=== PATIENT | female | born 2000 | race Caucasian/White ===

== ENCOUNTER 2021-09-11 00:04 | Emergency (ER) | payer OTHER ==
[~2021-09-11] VITALS: Ht 167.6 cm; Wt 95.6 kg
--- NOTE | 2021-09-11 00:38 | PHYS DOC ---
Adult General Chief Complaint Chief Complaint: ABDOMINAL PAIN HPI HPI Patient is a 21-year-old female with a past medical history of colitis and pancreatitis who presents to the emergency department with a chief complaint of epigastric pain, 6 out of 10, sharp in nature after having an alcoholic drink of tequila just before coming into the emergency department. States she had 2 episodes of nonbloody nonbilious emesis. Denies any recent traumas or travels, illnesses, fevers, chest pain, shortness of breath, diarrhea, dysuria, hematuria, blood in the stool. Denies any vaginal bleeding, discharge, pain or history of STIs. Review of Systems Review of Systems Review of systems otherwise unremarkable except noted in HPI Physical Exam Physical Exam Constitutional: Well developed, well nourished, no acute distress, non-toxic appearance. [] HENT: Normocephalic, atraumatic, bilateral external ears normal, oropharynx moist, no oral exudates, nose normal. [] Eyes: conjunctiva normal, no discharge. [] Neck: Normal range of motion, no tenderness, supple, no stridor. [] Cardiovascular:Heart rate regular rhythm, no murmur [] Lungs & Thorax: Bilateral breath sounds clear to auscultation [] Abdomen: soft, epigastric tenderness with no rebound or guarding,, no masses, no pulsatile masses. [] Skin: Warm, dry, no erythema, no rash. [] Back: No tenderness, no CVA tenderness. [] Extremities: No tenderness, no cyanosis, no clubbing, ROM intact, no edema. [] Neurologic: Alert and oriented X 3, normal motor function, normal sensory function, no focal deficits noted. [] Psychologic: Affect normal, judgement normal, mood normal. [] EKG EKG [] Radiology/Procedures Radiology/Procedures [] Heart Score C/O Chest Pain: No Risk Factors: Risk Factors: DM, Current or recent (<one month) smoker, HTN, HLP, family history of CAD, obesity. Risk Scores: Risk Factors: DM, Current or recent (<one month) smoker, HTN, HLP, family history of CAD, obesity. Course & Med Decision Making Course & Med Decision Making Patient is a 21-year-old female who presents with a chief complaint of epigastric pain, nausea and vomiting after drinking some tequila Vital signs nonconcerning. Physical exam noted above. Patient placed on the monitor with IV access established. Given pain and nausea medicine. Laboratory analysis not concerning. CT with no acute findings. On reassessment patient feeling better and felt safe to discharge home. Discussed findings with patient. Discussed symptomatic control at home. Advised to follow-up Monday with primary care physician. Gave return precautions to the ED. Patient grateful, verbalized understanding and agreed with plan of discharge. Dragon Disclaimer Dragon Disclaimer This electronic medical record was generated, in whole or in part, using a voice recognition dictation system. Departure Departure: Impression: Primary Impression: Abdominal pain Disposition: HOME / SELF CARE / HOMELESS Condition: STABLE Referrals: PCP,UNKNOWN (PCP) DENNIS MELENDREZ Patient Instructions: Abdominal Pain Additional Instructions: Thank you for coming into the emergency department tonight and allowing us to take care of you. Please read the attached information carefully to go over things we discussed. He can use Tylenol, and ibuprofen as well as Benadryl as needed. Please follow-up with your primary care physician on Monday to update on your ED visit and set up a follow-up as soon as you can. Please come back to the emergency department with new or concerning symptoms as discussed. MALLORY LUNA MD Sep 11, 2021 00:38
[2021-09-11 00:42] VITALS: BP 113/70
[2021-09-11] MEDS ORDERED: ONDANSETRON PF 4 MG/2 ML VIAL. IVP ONE (00:45)
[2021-09-11 00:57] LABS: BASO # 0.1 x10^3/uL (0.0-0.2); BASO % 1 % (0-3); EOS # 0.5 x10^3/uL (0.0-0.7); EOS % 6 % (0-3); HEMATOCRIT 41.4 % (36.0-47.0); HEMOGLOBIN 13.8 g/dL (12.0-15.5); LYMPH % 37 % (24-48); MEAN CORPUSCULAR HEMOGLOBIN 30 pg (25-35); MEAN CORPUSCULAR HGB CONC 33 g/dL (31-37); MEAN CORPUSCULAR VOLUME 88 fL (79-100); MONO # 0.8 x10^3/uL (0.0-1.1); MONO % 10 % (0-9); NEUT # 3.8 x10^3uL (1.8-7.7); NEUT % 46 % (31-73); PLATELET COUNT 361 x10^3/uL (140-400); RED BLOOD COUNT 4.69 x10^6/uL (3.50-5.40); WHITE BLOOD COUNT 8.2 x10^3/uL (4.0-11.0)
[2021-09-11] MEDS ORDERED: CONTRAST GIVEN. MC PRN (01:00)
[2021-09-11] MEDS ORDERED: IOHEXOL 300 MG/ML 75 ML VIAL. IV ONE (01:00)
[2021-09-11 01:03] LABS: CALCIUM 8.8 mg/dL (8.5-10.1); CREATININE 0.7 mg/dL (0.6-1.0); GFR 104.6; POTASSIUM 3.9 mmol/L (3.5-5.1)
[2021-09-11 01:03] LABS: BACTERIA,URINE 0 /HPF (0-FEW); BILIRUBIN,URINE NEG (NEG); CLARITY,URINE CLEAR; COLOR,URINE YELLOW; GLUCOSE,URINE NEG (NEG); NITRITE,URINE NEG (NEG); RBC,URINE 0 /HPF (0-2); SQUAMOUS EPITHELIAL CELL,UR FEW /LPF; UROBILINOGEN,URINE 0.2 mg/dL (0.2 mg/dL); WBC,URINE RARE /HPF (0-4)
[2021-09-11 01:09] LABS: ALBUMIN 3.8 g/dL (3.4-5.0); TOTAL BILIRUBIN 0.3 mg/dL (0.2-1.0); TOTAL PROTEIN 7.7 g/dL (6.4-8.2)
--- NOTE | 2021-09-11 01:52 | RAD ---
EXAM: CT Abdomen and Pelvis with IV contrast CLINICAL HISTORY: Epigastric pain. HX PANCREATITIS, COMPARISON: none TECHNIQUE: Helical CT of the abdomen and pelvis was performed following the administration of intrave nous contrast. Axial, coronal and sagittal reformatted images were generated. PQRS compliance statement - One or more of the following individualized dose reduction techniques wer e utilized for this study: 1. Automated exposure control 2. Adjustment of the mA and/or kV according to patient size 3. Use of iterative reconstruction technique FINDINGS: Lower Chest: Linear opacity lingula likely scarring/atelectasis. Abdomen and Pelvis: Liver is enlarged measuring 22.3 cm in craniocaudal dimension. The spleen, adrenal glands and pancrea s are unremarkable. Gallbladder is contracted. No biliary ductal dilatation. Symmetric nephrograms. Nonobstructing left lower pole renal calculus. No hydronephrosis. No hydrouret er. Bladder is decompressed. Anastomosis in the rectum and distal small bowel. No abdominal or pelvic lymphadenopathy. No abdominal or pelvic ascites. Aorta is normal in caliber. Bones: No aggressive osseous lesion is seen. IMPRESSION: 1. Hepatomegaly. 2. Gallbladder is contracted but otherwise unremarkable. 3. Nonobstructing left lower pole renal calculus. 4. No bowel obstruction. Electronically signed by: Obinna Dixon MD (09/11/2021 1:50 AM) BELIA
== END 2021-09-11 02:07 | disposition home or self-care (01) ==
LOC: ER 00:04
DX: R10.13 Epigastric pain (principal); R11.2 Nausea with vomiting, unspecified
CPT/HCPCS: 36415; 74177; 80053; 81001; 81025; 83690; 85025; 96374; 96375; 99285; J2405; J3010; Q9967

== ENCOUNTER 2021-10-25 09:07 | Emergency (ER) | payer OTHER ==
[~2021-10-25] VITALS: Ht 167.6 cm; Wt 93.0 kg
[2021-10-25 09:10] VITALS: BP 113/68
[2021-10-25] MEDS ORDERED: IOHEXOL 300 MG/ML 75 ML VIAL. IV ONE (09:45)
[2021-10-25 09:55] LABS: BASO % 1 % (0-3); EOS # 0.3 x10^3/uL (0.0-0.7); EOS % 6 % (0-3); HEMATOCRIT 41.8 % (36.0-47.0); HEMOGLOBIN 14.1 g/dL (12.0-15.5); LYMPH # 1.7 x10^3/uL (1.0-4.8); LYMPH % 32 % (24-48); MEAN CORPUSCULAR HEMOGLOBIN 29 pg (25-35); MEAN CORPUSCULAR HGB CONC 34 g/dL (31-37); MEAN CORPUSCULAR VOLUME 87 fL (79-100); MONO # 0.5 x10^3/uL (0.0-1.1); MONO % 9 % (0-9); NEUT # 2.8 x10^3uL (1.8-7.7); NEUT % 52 % (31-73); PLATELET COUNT 332 x10^3/uL (140-400); RED BLOOD COUNT 4.78 x10^6/uL (3.50-5.40); RED CELL DISTRIBUTION WIDTH 13.9 % (11.5-14.5); WHITE BLOOD COUNT 5.3 x10^3/uL (4.0-11.0)
--- NOTE | 2021-10-25 09:56 | PHYS DOC ---
Past History Additional Past Medical Histor: COLITIS Past Surgical History: Colectomy, Alcohol Use: Occasionally General Adult EDM: Chief Complaint: RECTAL BLEED HPI: HPI: Patient is a 21 year old female who presents with bright red blood per rectum. Patient states that yesterday, she had to strain in order to pass a bowel movement and noticed bright red blood on her stool. She states that at the heaviest bleeding, there was visible blood in the toilet bowl. She states that the bleeding tapered off and stopped on its own. Patient has extensive history of ulcerative colitis with a J-pouch and multiple colostomies that were reversed. Patient is currently 4 months . She states that she was in active labor for over 2 hours, and the delivery ended up due to umbilical cord compression. Patient denies abdominal pain, emesis, diarrhea. Review of Systems: Review of Systems: Constitutional: Denies fever, chills or generalized weakness Eyes: Denies change in visual acuity, visual field deficits or discharge HENT: Denies ear pain, nasal congestion or sore throat Respiratory: Denies cough or shortness of breath Cardiovascular: Denies chest pain, palpitations or edema GI: See HPI : Denies dysuria or hematuria Musculoskeletal: Denies back pain or joint pain Integument: Denies rash or other skin lesion Neurologic: Denies headache, focal weakness or sensory changes Current Medications: Current Meds: Current Medications Medications (Trade) Dose Ordered Sig/Sonido Start Time Stop Time Status Last Admin Dose Admin Iohexol (Omnipaque 300 Mg/ml) 75 ml 1X ONCE 10/25/21 09:45 10/25/21 09:46 DC Allergies: Allergies: Allergies Coded Allergies Type Severity Reaction Last Updated Verified ferrous sulfate Allergy Mild 09/11/21 Yes oxycodone Allergy Unknown 09/11/21 Yes Physical Exam: PE: Constitutional: Well developed, well nourished, no acute distress, non-toxic appearance. HENT: Normocephalic, atraumatic, bilateral external ears normal, nose normal. Eyes: EOMI, conjunctiva normal, no discharge. Neck: Normal range of motion, no stridor. Abdomen: Bowel sounds normal, soft, no tenderness, no masses, no pulsatile masses. Rectal: External hemorrhoid 6:00 without leona blood, rectal sphincter tone intact, no masses appreciated in rectum. Skin: Warm, dry, no erythema, no rash. Extremities: No tenderness, no cyanosis, no clubbing, ROM intact, no edema. Neurologic: Alert and oriented x4, steady and symmetrical upright gait, no focal deficits noted. Current Patient Data: Labs: Laboratory Tests Test 10/25/21 09:30 10/25/21 09:38 10/25/21 09:48 White Blood Count 5.3 x10^3/uL (4.0-11.0) Red Blood Count 4.78 x10^6/uL (3.50-5.40) Hemoglobin 14.1 g/dL (12.0-15.5) Hematocrit 41.8 % (36.0-47.0) Mean Corpuscular Volume 87 fL (79-100) Mean Corpuscular Hemoglobin 29 pg (25-35) Mean Corpuscular Hemoglobin Concent 34 g/dL (31-37) Red Cell Distribution Width 13.9 % (11.5-14.5) Platelet Count 332 x10^3/uL (140-400) Neutrophils (%) (Auto) 52 % (31-73) Lymphocytes (%) (Auto) 32 % (24-48) Monocytes (%) (Auto) 9 % (0-9) Eosinophils (%) (Auto) 6 % (0-3) Basophils (%) (Auto) 1 % (0-3) Neutrophils # (Auto) 2.8 x10^3uL (1.8-7.7) Lymphocytes # (Auto) 1.7 x10^3/uL (1.0-4.8) Monocytes # (Auto) 0.5 x10^3/uL (0.0-1.1) Eosinophils # (Auto) 0.3 x10^3/uL (0.0-0.7) Basophils # (Auto) 0.0 x10^3/uL (0.0-0.2) Sodium Level 139 mmol/L (136-145) Potassium Level 4.0 mmol/L (3.5-5.1) Chloride Level 104 mmol/L (98-107) Carbon Dioxide Level 24 mmol/L (21-32) Anion Gap 11 (6-14) Blood Urea Nitrogen 11 mg/dL (7-20) Creatinine 0.6 mg/dL (0.6-1.0) Estimated GFR (Cockcroft-Gault) 125.0 BUN/Creatinine Ratio 18 (6-20) Glucose Level 97 mg/dL (70-99) Calcium Level 9.0 mg/dL (8.5-10.1) Total Bilirubin 0.5 mg/dL (0.2-1.0) Aspartate Amino Transf (AST/SGOT) 24 U/L (15-37) Alanine Aminotransferase (ALT/SGPT) 58 U/L (14-59) Alkaline Phosphatase 74 U/L (46-116) Total Protein 7.7 g/dL (6.4-8.2) Albumin 3.8 g/dL (3.4-5.0) Albumin/Globulin Ratio 1.0 (1.0-1.7) Urine Collection Type Unknown Urine Color Yellow Urine Clarity Hazy Urine pH 6.0 Urine Specific [place] >=1.030 Urine Protein Neg (NEG-TRACE) Urine Glucose (UA) Neg mg/dL (NEG) Urine Ketones (Stick) Neg mg/dL (NEG) Urine Blood Trace (NEG) Urine Nitrite Neg (NEG) Urine Bilirubin Neg (NEG) Urine Urobilinogen Dipstick 0.2 mg/dL (0.2 mg/dL) Urine Leukocyte Esterase Neg (NEG) Urine RBC 3-5 /HPF (0-2) Urine WBC 1-4 /HPF (0-4) Urine Squamous Epithelial Cells Many /LPF Urine Bacteria Few /HPF (0-FEW) Bedside Urine HCG, Qualitative hcg negative (Negative) Vital Signs: VS - Last 72 Hours, by Label Date Time Temp Pulse Resp B/P (MAP) Pulse Ox O2 Delivery O2 Flow Rate FiO2 10/25/21 09:10 98.5 60 16 113/68 (83) 97.0 Radiology/Procedures: Radiology/Procedures: PROCEDURE: CT ABD PELV W/ IV CONTRST ONLY Exam: CT abdomen/pelvis with intravenous contrast Indication: Rectal bleeding Comparison: CT abdomen pelvis 09/11/2021 Technique: Helical CT imaging performed of the abdomen and pelvis after the intravenous administration of contrast. Sagittal and coronal reformats were obtained. One or more of the following individualized dose reduction techniques were utilized for this examination: 1. Automated exposure control 2. Adjustment of the mA and/or kV according to patient size 3. Use of iterative reconstruction technique. Findings: Lower chest: Normal. Liver: Liver is mildly enlarged measuring 20 cm. No focal liver lesion. Gallbladder/Biliary Tree: Normal. Pancreas: Normal. Spleen: Normal. Adrenal Glands: Normal. Kidneys/Ureters/Bladder: There is a punctate calculus in the inferior left renal pole. No hydronephrosis. The right kidney is normal. Ureters and bladder are normal. Reproductive Organs: Normal. Stomach, small bowel, and colon: The stomach is normal. Probable surgical changes of colectomy with an anastomosis seen in the rectum and distal small bowel. No bowel obstruction. Small right lateral abdominal wall hernia with small amount of bowel extending partially into the hernia sac. No evidence of complication. Vasculature: Abdominal aorta is normal in caliber. Lymph Nodes: No lymphadenopathy. Peritoneum and retroperitoneum: No free fluid or free air. There are surgical clips in the right upper abdomen. Bones: No acute osseous abnormality. IMPRESSION: 1. Probable surgical changes of colectomy. No acute abnormality of the bowel. 2. There is a small right lateral abdominal wall hernia containing a small amount of bowel. No evidence of complication. 3. Left nephrolithiasis. Electronically signed by: Shanon Soto MD (10/25/2021 10:17 AM) [id number] Heart Score: C/O Chest Pain: No Course & Med Decision Making: Course & Med Decision Making Pertinent Labs and Imaging studies reviewed. (See chart for details) Patient is a 21-year-old female that is 4 months who complains of bright red blood per rectum. On exam, she does have external hemorrhoid. CT abdomen pelvis was ordered due to patient's extensive GI history. Work-up is unremarkable. Lab states they were unable to run the fecal Hemoccult test because there was "nothing visibly smeared on the card." As there is no leona blood appreciated and CT imaging was negative for any acute GI pathology, repeat sampling was not performed. Patient was counseled on supportive treatment measures for hemorrhoids. Return precautions and GI follow-up contact information were provided. Patient understands and is agreeable to discharge plan. Dragon Disclaimer: Dragon Disclaimer: This electronic medical record was generated, in whole or in part, using a voice recognition dictation system. Departure Departure: Impression: Primary Impression: Hemorrhoids, external without complications Additional Impressions: Hemorrhoids, Hx of total colectomy Left nephrolithiasis Disposition: HOME / SELF CARE / HOMELESS Condition: STABLE Referrals: KRYSTAL GUILLEN MD (PCP) Patient Instructions: Hemorrhoids, [id number] Additional Instructions: EMERGENCY DEPARTMENT GENERAL DISCHARGE INSTRUCTIONS Thank you for coming to [facility] (ED) today and trusting us with you care. We trust that you had a positive experience in our Emergency Department. If you wish to speak to the department management, you may call the director at [phone]. YOUR FOLLOW UP INSTRUCTIONS ARE FOLLOWS: 1. Follow up with your primary care doctor. If you do not have a primary doctor, please ask for a resource list of physicians or clinics that may be able to assist you with follow up care. 2. The emergency provider has interpreted your imaging studies, if any were ordered. The radiology imaging technician also reviewed them. If there is a change in the findings, you will be notified in 48 hours when at all possible. 3. If a lab test or culture has been done, your results will be reviewed and you will be notified if you need a change in treatment. 4. Follow instructions verbalized to you and refer to the printouts if needed. ADDITIONAL INSTRUCTIONS AND INFORMATION: 1. Your care today has been supervised by a physician who is specially trained in emergency care. Many problems require more than one evaluation for a complete diagnosis and treatment. We recommend that you schedule your follow up appointment as recommended to ensure complete treatment of you illness or injury. If you are unable to obtain follow up care and continue to have a problem, or if your condition worsens, we recommend that you return to the ED. 2. We are not able to safely determine your condition over the phone nor are we able to give sound medical advice over the phone. For these safety reasons, if you call for medical advice we will ask you to come to the ED for further evaluation. 3. If you have any questions regarding these discharge instructions please call the ED at [phone]. SAFETY INFORMATION: In the interest of safety, wellness, and injury prevention; we encourage you to wear your seat belt, if you smoke; quite smoking, and we encourage family to use a protective helmet for bicycling and other sporting events that present an increased risk for head injury. IF YOUR SYMPTOMS WORSEN OR NEW SYMPTOMS DEVELOP, OR YOU HAVE CONCERNS ABOUT YOUR CONDITION; OR IF YOUR CONDITION WORSENS WHILE YOU ARE WAITING FOR YOUR FOLLOW UP APPOINTMENT; EITHER CONTACT YOUR PRIMARY CARE DOCTOR, THE PHYSICIAN WHOSE NAME AND NUMBER YOU WERE GIVEN, OR RETURN TO THE ED IMMEDIATELY. JAIRO FRIEND Oct 25, 2021 09:56
[2021-10-25 10:01] LABS: CREATININE 0.6 mg/dL (0.6-1.0)
[2021-10-25 10:07] LABS: ALBUMIN 3.8 g/dL (3.4-5.0); TOTAL BILIRUBIN 0.5 mg/dL (0.2-1.0); TOTAL PROTEIN 7.7 g/dL (6.4-8.2)
[2021-10-25 10:19] LABS: BACTERIA,URINE FEW /HPF (0-FEW); CLARITY,URINE HAZY; COLOR,URINE YELLOW; GLUCOSE,URINE NEG (NEG); NITRITE,URINE NEG (NEG); SQUAMOUS EPITHELIAL CELL,UR MANY /LPF; UROBILINOGEN,URINE 0.2 mg/dL (0.2 mg/dL)
--- NOTE | 2021-10-25 10:19 | RAD ---
Exam: CT abdomen/pelvis with intravenous contrast Indication: Rectal bleeding Comparison: CT abdomen pelvis 09/11/2021 Technique: Helical CT imaging performed of the abdomen and pelvis after the intravenous administratio n of contrast. Sagittal and coronal reformats were obtained. One or more of the following individualized dose reduction techniques were utilized for this examinat ion: 1. Automated exposure control 2. Adjustment of the mA and/or kV according to patient size 3. Use of iterative reconstruction technique. Findings: Lower chest: Normal. Liver: Liver is mildly enlarged measuring 20 cm. No focal liver lesion. Gallbladder/Biliary Tree: Normal. Pancreas: Normal. Spleen: Normal. Adrenal Glands: Normal. Kidneys/Ureters/Bladder: There is a punctate calculus in the inferior left renal pole. No hydronephro sis. The right kidney is normal. Ureters and bladder are normal. Reproductive Organs: Normal. Stomach, small bowel, and colon: The stomach is normal. Probable surgical changes of colectomy with a n anastomosis seen in the rectum and distal small bowel. No bowel obstruction. Small right lateral ab dominal wall hernia with small amount of bowel extending partially into the hernia sac. No evidence o f complication. Vasculature: Abdominal aorta is normal in caliber. Lymph Nodes: No lymphadenopathy. Peritoneum and retroperitoneum: No free fluid or free air. There are surgical clips in the right uppe r abdomen. Bones: No acute osseous abnormality. IMPRESSION: 1. Probable surgical changes of colectomy. No acute abnormality of the bowel. 2. There is a small right lateral abdominal wall hernia containing a small amount of bowel. No evide nce of complication. 3. Left nephrolithiasis. Electronically signed by: Shanon Soto MD (10/25/2021 10:17 AM) [id number]
== END 2021-10-25 11:05 | disposition home or self-care (01) ==
LOC: ER 09:07
DX: K64.4 Residual hemorrhoidal skin tags (principal); N20.0 Calculus of kidney; Z90.49 Acquired absence of other specified parts of digestive tract; Z88.5 Allergy status to narcotic agent; Z88.8 Allergy status to other drugs, medicaments and biological substances
CPT/HCPCS: 36415; 74177; 80053; 81001; 81025; 85025; 99285; Q9967